=== PATIENT | female | born 1955 | race Caucasian/White ===

== ENCOUNTER 2018-08-28 20:52 | Emergency (ER) | payer MEDICARE, OTHER ==
[~2018-08-28] VITALS: Ht 154.9 cm; Wt 60.0 kg
[~2018-08-28 20:52] MED LIST: BENA40TA56; ESCI10TA; IPRA14.76 IH; MELO-37
[2018-08-28 20:59] VITALS: Ht 154.9 cm; Wt 60.0 kg
[2018-08-28] MEDS ORDERED: SOD CHLORIDE 0.9% 100 ML ONE (22:44)
[2018-08-28] MEDS ORDERED: IOHEXOL 100 ML ONE (22:44)
[2018-08-29 00:16] VITALS: BP 123/77; PULSE 63; RESP 16
[2018-08-29] MEDS ORDERED: TEMA30CA PO (00:23)
[2018-08-29] MEDS ORDERED: ALBUTEROL/IPRATROPIUM (NEB) 3 ML AMP HHN PRN (03:30)
[2018-08-29] MEDS ORDERED: ACETAMINOPHEN 325 MG TAB PO PRN (03:30)
[2018-08-29] MEDS ORDERED: NACL 0.9% 3 ML SYG IV SCH (03:30)
[2018-08-29] MEDS ORDERED: ONDANSETRON 4 MG INJ IV PRN (03:30)
--- NOTE | 2018-08-29 05:27 | ERD ---
ER Documentation Chief Complaint Chief Complaint L-sided facial numbness/tingling, L arm numbness/tingling since 0400 HPI This is a 63-year-old female presents for evaluation of left-sided facial numbness, left arm numbness, bilateral hand numbness, as the left perioral numbness, for the last 24 hours. She has not had any speech changes she denies weakness, she has no history of strokes, patient endorses some anxiety. She denies any chest pain or shortness of breath. ROS All systems reviewed and are negative except as per history of present illness. Medications Home Meds Active Scripts Temazepam* (Temazepam*) 30 Mg Capsule, 30 MG PO HS PRN for INSOMNIA for 5 Days, CAP Prov:LANDY LI MD 08/29/18 Reported Medications Albuterol/Ipratropium (Combivent) 14.7 Gm Inha, 14.7 GM IH 09/17/11 Benazepril Hcl* (Benazepril Hcl*) 40 Mg Tablet, DAILY 09/17/11 Meloxicam (Mobic) 15 Mg Tablet, DAILY, 0 Refills 08/21/10 Escitalopram Oxalate* (Lexapro*) 10 Mg Tablet 08/21/10 Allergies Allergies: Coded Allergies: No Known Allergy (Verified , 09/17/11) PMhx/Soc History of Surgery: Yes (Gall bladder, Bilat knees) Anesthesia Reaction: No Hx Neurological Disorder: No Hx Respiratory Disorders: Yes (ASTHMA) Hx Cardiac Disorders: Yes (HTN) Hx Psychiatric Problems: Yes (PTSD) Hx Miscellaneous Medical Probl: No Hx Alcohol Use: No Hx Substance Use: No Hx Tobacco Use: No Smoking Status: Never smoker Physical Exam Vitals Vital Signs Date Temp Pulse Resp B/P (MAP) Pulse Ox O2 O2 Flow FiO2 Time Delivery Rate 08/29/18 98.7 63 16 123/77 100 Room Air 00:16 (92) 08/28/18 98.6 76 18 156/85 99 Room Air 21:20 (108) 08/28/18 98.6 95 18 185/91 98 20:59 (122) Physical Exam Const: No acute distress Head: Atraumatic Eyes: Normal Conjunctiva ENT: Normal External Ears, Nose and Mouth. Neck: Full range of motion. No meningismus. Resp: Clear to auscultation bilaterally Cardio: Regular rate and rhythm, no murmurs Abd: Soft, non tender, non distended. Normal bowel sounds Skin: No petechiae or rashes Back: No midline or flank tenderness Ext: No cyanosis, or edema Neur: Neuro: M/S: Alert and oriented Face: EOMI, face and pharynx with normal sensation and function Motor: Normal strength throughout Sensation: Normal sensation throughout Speech: Normal Cerebel: Normal coordination Normal gait Normal finger to nose DTR: 2+ and symmetric upper/lower extremities Psych: Normal Mood and Affect Result Diagram: 08/28/18213908/[id number]/182139 Results 24 hrs Laboratory Tests Test 08/28/18 21:39 08/28/18 21:40 Prothrombin Time 12.1 Sec Prothrombin Time Ratio 0.9 INR International Normalized Ratio 0.89 Activated Partial Thromboplast Time 29.7 Sec Hemoglobin A1c 5.5 % White Blood Count 5.9 10^3/ul Red Blood Count 4.78 10^6/ul Hemoglobin 13.2 g/dl Hematocrit 40.1 % Mean Corpuscular Volume 83.9 fl Mean Corpuscular Hemoglobin 27.6 pg Mean Corpuscular Hemoglobin Concent 32.9 g/dl Red Cell Distribution Width 14.2 % Platelet Count 227 10^3/UL Mean Platelet Volume 9.3 fl Immature Granulocytes % 0.500 % Neutrophils % 59.0 % Lymphocytes % 32.3 % Monocytes % 6.7 % Eosinophils % 1.0 % Basophils % 0.5 % Nucleated Red Blood Cells % 0.0 /100WBC Immature Granulocytes # 0.030 10^3/ul Neutrophils # 3.5 10^3/ul Lymphocytes # 1.9 10^3/ul Monocytes # 0.4 10^3/ul Eosinophils # 0.1 10^3/ul Basophils # 0.0 10^3/ul Nucleated Red Blood Cells # 0.0 10^3/ul Urine Color STRAW Urine Clarity CLEAR Urine pH 6.0 Urine Specific [place] 1.005 Urine Ketones NEGATIVE mg/dL Urine Nitrite NEGATIVE mg/dL Urine Bilirubin NEGATIVE mg/dL Urine Urobilinogen NEGATIVE mg/dL Urine Leukocyte Esterase NEGATIVE [place]/ul Urine Hemoglobin NEGATIVE mg/dL Urine Glucose NEGATIVE mg/dL Urine Total Protein NEGATIVE mg/dl Sodium Level 140 mmol/L Potassium Level 3.9 mmol/L Chloride Level 105 mmol/L Carbon Dioxide Level 25 mmol/L Anion Gap 10 Blood Urea Nitrogen 18 mg/dl Creatinine 0.57 mg/dl Est Glomerular Filtrat Rate mL/min > 60 mL/min Glucose Level 118 mg/dl Calcium Level 9.9 mg/dl Total Bilirubin 0.3 mg/dl Direct Bilirubin 0.00 mg/dl Indirect Bilirubin 0.3 mg/dl Aspartate Amino Transf (AST/SGOT) 27 IU/L Alanine Aminotransferase (ALT/SGPT) 25 IU/L Alkaline Phosphatase 90 IU/L Troponin I < 0.012 ng/ml Total Protein 8.4 g/dl Albumin 4.7 g/dl Globulin 3.70 g/dl Albumin/Globulin Ratio 1.27 Triglycerides Level 202 mg/dl Cholesterol Level 166 mg/dl LDL Cholesterol, Calculated 28 mg/dl HDL Cholesterol 98 mg/dl Cholesterol/HDL Ratio 1.6 RATIO Current Medications Medications Dose Sig/Ange Start Time Status Last (Trade) Ordered Route PRN Stop Time Admin Dose Reason Admin Sodium 100 ml @ ud STK-MED 08/28/18 DC Chloride ONCE .ROUTE 22:44 08/28/18 22:45 Iohexol 100 ml @ STK-MED 08/28/18 DC ONCE .ROUTE 22:44 08/28/18 22:45 IV Flush 3 ml PER 08/29/18 (NS 3 ml) PROTOCOL IV 03:30 Ondansetron 4 mg Q6H PRN 08/29/18 HCl (Zofran IV 03:30 Inj) NAUSEA/VOMITI NG Aspirin 81 mg DAILY PO 08/29/18 (Aspirin) 09:00 650 mg Q6H PRN 08/29/18 Acetaminophen PO .PAIN 1-3 03:30 (Tylenol OR TEMP Tab) Enoxaparin 40 mg DAILY SC 08/29/18 Sodium 09:00 (Lovenox) Albuterol/ 3 ml Q2H RESP 08/29/18 Ipratropium THERAPY PRN 03:30 (Duoneb) HHN SHORTNESS OF BREATH Procedures/MDM This is a very pleasant 63-year-old female, who presents for diffuse numbness of her body. Her symptoms does not correspond to any specific neurologic focal point, which would be concerning for an acute stroke. Both her CT and CTA of her brain were negative. Her labs were all unremarkable, and her cardiac workup is negative, while a TIA is possible, at this time of a very low suspicion, and patient felt comfortable following up with her PMD within 48 hours, for further evaluation. Additionally, a demyelinating disorder is also considered, the patient has no current deficits, and no prior history of such, so it is less likely. At discharge the patient was ambulatory and in no acute distress. EKG: Rate/Rhythm: Normal Sinus Rhythm QRS, ST, T-waves: No changes consistent w/ acute ischemia Impression: No evidence of ischemia or arrhythmia Departure Diagnosis: Primary Impression: Numbness Additional Impression: Insomnia Insomnia type: unspecified Qualified Codes: G47.00 - Insomnia, unspecified Condition: Stable Patient Instructions: Insomnia, Paraesthesias Additional Instructions: Call your primary care doctor TOMORROW for an appointment during the next 2-3 days.See the doctor sooner or return here if your condition worsens before your appointment time. LANDY LI MD Aug 29, 2018 05:27
[2018-08-29] MEDS ORDERED: ENOXAPARIN 40 MG/0.4 ML SYG SC SCH (09:00)
[2018-08-29] MEDS ORDERED: ASPIRIN 81 MG TAB PO SCH (09:00)
== END 2018-08-29 00:50 | disposition home or self-care (01) ==
LOC: E/R 20:52
DX: R20.0 Anesthesia of skin (principal); G47.00 Insomnia, unspecified; R07.9 Chest pain, unspecified; I10 Essential (primary) hypertension; J45.909 Unspecified asthma, uncomplicated
CPT/HCPCS: 70450; 70496; 70498; 71045; 80053; 80061; 81003; 83036; 84484; 85025; 85610; 85730; 93005; Q9967; 36415